=== PATIENT | male | born 1995 | race African-American/Black ===

== ENCOUNTER 2017-11-03 13:21 | Emergency (ER) | payer OTHER ==
[2017-11-03 13:52] LABS: BEDSIDE GLUCOSE 72 MG/DL (70-105)
[2017-11-03 13:59] LABS: ABG BASE EXCESS -1.1 (-2.0-2.0); ABG HCO3 23.1 MEQ/L (22.0-26.0); ABG O2 SATURATION 97.8 % (95.0-99.0); ABG PARTIAL PRESSURE CO2 37.5 mmHg (35.0-45.0); ABG PARTIAL PRESSURE O2 99.8 mmHg (75.0-100.0); ABG STANDARD HCO3 23.6 MEQ/L (22.0-26.0); ABG TOTAL CO2 24.3 MEQ/L (22.0-29.0); ABG pH (ARTERIAL) 7.408 UNITS (7.350-7.450)
[2017-11-03 14:20] LABS: CARBOXYHEMOGLOBIN 10.1 % (0.0-1.5)
[2017-11-03 14:23] LABS: BASO % 0.3 % (0.0-1.0); EOS % 0.3 % (0.0-3.0); HEMATOCRIT 48.1 % (42.0-52.0); HEMOGLOBIN 15.6 g/dl (14.0-18.0); IMMATURE GRANULOCYTE % 0.2 % (0-3.0); LYMPH # 2.1 10^3/uL (1.5-6.5); LYMPH % 23.1 % (24.0-44.0); MEAN CORPUSCULAR HEMOGLOBIN 26.8 pg (27.0-33.0); MEAN CORPUSCULAR HGB CONC 32.4 g/dl (32.0-36.5); MEAN CORPUSCULAR VOLUME 82.6 fl (80.0-96.0); MONO # 0.6 10^3/uL (0.0-0.8); MONO % 6.6 % (0.0-5.0); NEUTROPHILS # 6.4 10^3/uL (1.8-7.7); NEUTROPHILS % 69.5 % (36.0-66.0); PLATELET COUNT, AUTOMATED 167 10^3/uL (150-450); RED BLOOD COUNT 5.82 10^6/uL (4.30-6.10); RED CELL DISTRIBUTION WIDTH 11.9 % (11.5-14.5); WHITE BLOOD COUNT 9.2 10^3/uL (4.0-10.0)
[2017-11-03 14:46] LABS: ACETAMINOPHEN LEVEL 4.4 UG/ML (10.0-30.0); ALBUMIN 4.5 GM/DL (3.2-5.2); ALBUMIN/GLOBULIN RATIO 1.36 (1.00-1.93); ALKALINE PHOSPHATASE 80 U/L (45-117); ALT/SGPT 24 U/L (12-78); ANION GAP 7 MEQ/L (8-16); AST/SGOT 29 U/L (7-37); BILIRUBIN,DIRECT 0.2 MG/DL (0.0-0.2); BILIRUBIN,TOTAL 0.7 MG/DL (0.2-1.0); BLOOD UREA NITROGEN 16 MG/DL (7-18); CALCIUM LEVEL 9.2 MG/DL (8.5-10.1); CARBON DIOXIDE LEVEL 28 MEQ/L (21-32); CHLORIDE LEVEL 104 MEQ/L (98-107); CPK CREATINE PHOSPHOKINASE 570 U/L (39-308); CREATININE FOR GFR 0.92 MG/DL (0.70-1.30); GLOMERULAR FILTRATION RATE > 60.0 (>60); GLUCOSE, FASTING 78 MG/DL (70-100); POTASSIUM SERUM 4.4 MEQ/L (3.5-5.1); SALICYLATE LEVEL < 1.7 MG/DL (5.0-30.0); SODIUM LEVEL 139 MEQ/L (136-145); TOTAL PROTEIN 7.8 GM/DL (6.4-8.2); TROPONIN I < 0.02 NG/ML (< 0.10)
[2017-11-03 14:49] LABS: ETHYL ALCOHOL (ETHANOL) < 0.003 % (0.000-0.010)
[2017-11-03 14:51] LABS: POS COUNT POS FLAG
[2017-11-03 14:53] LABS: MB/CK RELATIVE INDEX 0.52 (< OR =4)
[2017-11-03 14:58] LABS: AMPHETAMINES LEVEL URINE NEGATIVE (NEGATIVE); BARBITURATES URINE NEGATIVE (NEGATIVE); BENZODIAZEPINES URINE NEGATIVE (NEGATIVE); CANNABINOIDS URINE NEGATIVE (NEGATIVE); COCAINE METABOLITE URINE NEGATIVE (NEGATIVE); METHADONE URINE NEGATIVE (NEGATIVE); OPIATES URINE NEGATIVE (NEGATIVE); PHENCYCLIDINE URINE NEGATIVE (NEGATIVE)
[2017-11-03 16:46] LABS: THYROID STIMULATING HORMONE 0.535 uIU/ML (0.358-3.740)
[2017-11-03] MEDS: ACETAMINOPHEN 325 MG TAB PO (17:04)
[2017-11-03 17:57] LABS: CARBOXYHEMOGLOBIN 3.1 % (0.0-1.5)
== END 2017-11-03 19:35 | disposition home or self-care (01) ==
LOC: M ED 13:21
DX: T58.91XA Toxic effect of carbon monoxide from unspecified source, accidental (unintentional), initial encounter (principal); R00.1 Bradycardia, unspecified; X58.XXXA Exposure to other specified factors, initial encounter; Y92.138 Other place on military base as the place of occurrence of the external cause
CPT/HCPCS: 70450